=== PATIENT | male | born 1955 | race Caucasian/White ===

== ENCOUNTER 2016-10-15 18:04 | Inpatient (IN) | payer OTHER ==
[~2016-10-15] VITALS: Ht 190.5 cm; Wt 105.0 kg
[2016-10-19] MEDS ORDERED: EFFEXOR DPS75 MG PO (18:28)
[2016-10-19] MEDS ORDERED: CELEXA40 MG PO (18:28)
[2016-10-19] MEDS ORDERED: THERA1 EACH PO (18:28)
[2016-10-19] MEDS ORDERED: MAGNESIUM250 M1 PO (18:29)
[2016-10-19] MEDS ORDERED: TURMERIC500 MG PO (18:29)
[2016-10-19] MEDS ORDERED: VITAMIN D31000 UNIT PO (18:30)
[2016-10-19] MEDS ORDERED: VITAMIN B-12500 MCG PO (18:30)
[2016-10-19] MEDS ORDERED: FLONASE 0.05% D16 GM NS (18:30)
[2016-10-19] MEDS ORDERED: ZESTORETIC 20/21 TAB PO (18:31)
--- NOTE | 2016-10-21 13:56 | ER ---
ADMIT: 10/15/2016 RM/LOC: [address] [place] [address] MR#: [id number] [id number] [place], [place] [address] DUSTIN KAUR [address] [place] [address] Emergency Room Report SEX: M AGE: 61 : 1955 DATE: 10/15/2016 HISTORY OF PRESENT ILLNESS: The patient is a 61-year-old male, presents to the emergency room with 12 hours of abdominal pain. He says in the last hour, it has gotten worse. He describes it as a pressure pain. He feels bloated. He has had some nausea and vomiting. He is pretty concerned because he has had multiple surgeries in the past, abdominal surgeries. REVIEW OF SYSTEMS: Now is positive for anxiety. PAST MEDICAL HISTORY: He has had ischemic bowel, multiple bowel surgeries, shoulder surgery, liver lesion. MEDICATIONS: He takes: 1. Celexa. 2. Effexor. ALLERGIC: To aspirin and penicillin. PHYSICAL EXAMINATION: VITAL SIGNS: Blood pressure 184/118 with a heart rate of 61, respirations 20, temp is 97.7, O2 sats 98%. GENERAL: Moderately anxious, very pleasant and cooperative with the physical examination. NECK: Supple. RESPIRATIONS: No distress. CARDIOVASCULAR: Regular in rate and rhythm. ABDOMEN: Distended. Hernia palpated ventrally. There is generalized abdominal discomfort with right upper quadrant deep palpation discomfort and guarding. BACK: Normal inspection. SKIN: Good color and turgor. EXTREMITIES: Nontender. No edema. NEURO: Oriented x4. Mood and affect are appropriate. LABORATORY AND DIAGNOSTIC DATA: CBC within normal limits. Chemistry normal as well except for the lipase at 472. Lactic acid 1.4. UA hazy with amorphous ADMIT: 10/15/2016 RM/LOC: 501 [facility] MR#: [id number] [address] [address] UDSTIN KAUR [address] [place] [address] Emergency Room Report SEX: M AGE: 61 : [address] obstruction close to the anastomosis site, dilated loops of small bowel, ventral hernia and constipation. Dr. Kemp was contacted at [address] Martinez on this patient. CLINICAL IMPRESSION: 1. Constipation. 2. Bowel obstruction. 3. Ventral hernia. 4. Abdominal pain. Orders received. The patient has received IV fluids, 4 mg IV of Zofran, and Dilaudid 1 mg IV. The patient mentions that he had 6 abdominal surgeries altogether. The patient is awaiting room placement now. HAYES Muro / Angus Story MD / foreign JOB #: [id number] CC: Randy Martinez MD, Attending Physician Randy Martinez MD, Family Physician
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
--- NOTE | 2016-10-27 16:25 | CO ---
ADMIT: 10/15/2016 RM/LOC: 501 [facility] MR#: [id number] [address] [address] DUSTIN KAUR [address] [place] [address] Consultation SEX: M AGE: 61 : 1955 DATE OF CONSULTATION: 10/16/2016 ATTENDING PHYSICIAN: Randy Martinez CONSULTING PHYSICIAN: Xander Trimble MD REASON FOR CONSULTATION: Question of a small-bowel obstruction and abdominal pain. HISTORY OF PRESENT ILLNESS: This patient is a 61-year-old male with a significant and complicated surgical history. Evidently, at one point, he had a portal vein thrombosis, ended up with splenectomy, ended up with ischemic bowel and a surgery there. At some point, he has had a part of his liver removed for a lesion that he says was benign. He had a hernia repair by I believe Dr. Dior at some point or somewhere, but then ultimately, he had a recurrence of small bowel obstruction; and about 7 years ago, in 2009, he had a long and extended surgery in his abdomen. At that point, they removed the biologic I believe. Since then, for the most part he has been getting along okay. He does have a recurrence kind of a midline hernia, and it sounds like yesterday he started having abdominal pain, a little bit of nausea and vomiting, but is much better today. His abdomen is very soft. There is no incarceration into this hernia; soft throughout with minimal pain. Not really passed any gas yesterday, and he had a little loose stool, but he said, that is not unusual for him. No blood or anything else. PAST MEDICAL HISTORY: Significant for I believe six different abdominal surgeries as described above. He has had a shoulder surgery. MEDICATIONS: Include: 1. Effexor. 2. Citalopram. 3. Flonase. 4. Few different vitamins. ALLERGIES: 1. PENICILLIN. 2. ASPIRIN. 3. LATEX. 4. NSAIDS. SOCIAL HISTORY: Denies any significant tobacco, alcohol, or illicit drugs. FAMILY HISTORY: Otherwise, noncontributory. PHYSICAL EXAMINATION: GENERAL: Currently, when I see him, he is alert, he is oriented, he is in no significant distress. He has a headache. EYES: His sclerae are nonicteric. His extraocular muscles are intact. CHEST: Appears clear anteriorly. HEART: Regular rate and rhythm without significant murmurs. ADMIT: 10/15/2016 RM/LOC: 501 [facility] MR#: [id number] [address] [address] DUSTIN KAUR [address] [place] [address] Consultation SEX: M AGE: 61 : 1955 ABDOMEN: Soft. As described above, no real pain to palpation. Hernia which is easily palpated with nothing incarcerated. No other mass or organomegaly. EXTREMITIES: Without any significant clubbing, cyanosis, or edema. REVIEW OF SYSTEMS: His review of systems was done and as above in the HPI. Otherwise, completely negative. ASSESSMENT AND PLAN: Obviously with his history, he is somebody we would do everything we could conservatively to stay out of his abdomen, and thus, it was life saving and/or dire needs. If he starts back on it more, we would plan on doing an NG tube first. At this point though, he seems to be improved, we will try some increased activity, sips of water, Dulcolax suppositories if needed. I will follow along. Xander Trimble MD/ foreign JOB #: [id number] CC: Randy Martinez, Attending Physician Randy Martinez, Family Physician
--- NOTE | 2016-11-25 08:19 | DS ---
ADMIT: 10/15/2016 RM/LOC: 501 [facility] MR#: [id number] [id number] [place], [place] [address] DUSTIN KAUR [address] [place] [address] General Discharge Summary SEX: M AGE: 61 : 1955 ADMISSION DATE: 10/15/2016 DISCHARGE DATE: 10/18/2016 PRIMARY DIAGNOSES: 1. Partial small bowel obstruction. 2. Large ventral hernia. 3. Enlarged prostate. 4. Urine retention (secondary to enlarged prostate). 5. Elevated liver enzymes. 6. Hypertension. CONSULTATIONS DURING THIS HOSPITALIZATION: General Surgery (Dr. All Trimble). HISTORY OF PRESENT ILLNESS: The patient is a 61-year-old, white male, who has a history of multiple previous abdominal surgeries. He states that over the past week, he has not felt well in regard to his abdomen. He has had some generalized abdominal discomfort, which had been minimal earlier in the week, but progressively worsened over the course of the week. He began to have some worsening abdominal pain and became fairly severe on the evening of Nelson, 10/15/2016. Because of this, he came into the emergency room for evaluation. He has had numerous previous abdominal surgeries. CT scan of the abdomen done through the emergency room showed some fluid-filled loops of small bowel significant for possible obstruction. Given his abdominal pain and CT scan findings, he was kept for evaluation and treatment of a partial small bowel obstruction. LABORATORY AND X-RAY: Admission labs from the ER included a white count of 9.5, hemoglobin 14.7, and platelet count 203. Urinalysis was unremarkable. Admission sodium 141, potassium 4.1, BUN 16, creatinine 1.0, glucose 92, amylase 70, lipase 472, AST 30, ALT 39, and lactic acid 1.4. CT scan of the abdomen and pelvis done through the emergency room evaluation showed dilated loops of small bowel suspicious for partial obstruction. Also, noted was some constipation and an enlarged prostate. He also had a large ventral abdominal hernia with loops of bowel present. Additional pertinent labs and x-ray includedan abdominal x-ray on 10/18, which showed a negative bowel gas pattern. C-reactive protein prior to discharge on 10/18 was 0.83. Labs prior to discharge included a sodium of 141, potassium 3.7, BUN 9, creatinine 0.9, alkaline phosphatase 173, AST 191, ALT 322, amylase 34, lipase 149, and magnesium 2.1. White blood cell count 6.4, hemoglobin 13.8, and platelet count 188. HOSPITAL COURSE: The patient was admitted to the hospital on 10/15/2016, with partial small bowel obstruction. Because of his multiple previous abdominal surgeries, I did consult General Surgery to evaluate this patient. We kept him n.p.o. at the time of admission and gave generous IV fluids. An NG tube was ordered to be placed if his pain, nausea, or vomiting continued. We continued his regular home medications and provided morphine CLUB LICENSEE for pain control. He was noted to have some elevated blood pressure readings and ADMIT: 10/15/2016 RM/LOC: 501 [facility] MR#: [id number] [address] [address] DUSTIN KAUR [address] [place] [address] General Discharge Summary SEX: M AGE: 61 : 1955 therefore amlodipine was initiated at a dose of 5 mg daily. The morphine was not really working well for his pain and was therefore switched to a Dilaudid CLUB LICENSEE on 10/16/2016. Abdominal flat plates were ordered and followed daily. Resolution of the small-bowel obstruction was noted on x-ray as the patient improved. General Surgery did see this patient in consultation and did not feel that any surgical intervention was needed, and in fact felt that any surgical intervention would try to be avoided if at all possible because of all of his previous abdominal surgeries and likely adhesions and scarring. I did start the patient on lisinopril/HCT 20/25 mg daily for his elevated blood pressure. He had apparently been on this in the past, but stopped taking it at home. The patient continued to improve throughout the hospitalization. He was passing gas by 10/17/2016. A full liquid diet was ordered by Dr. Trimble on 10/17/2016. He continued to improve and did not have any further nausea or vomiting. He had been having bowel movements by 10/18/2016 as well as passing gas. His diet was advanced as tolerated and later in the day on 10/18/2016, he was doing well and was set up to be discharged to home. DISCHARGE INSTRUCTIONS: The patient was discharged to home on 10/18/2016. MEDICATIONS AT TIME OF DISCHARGE: Included: 1. Celexa 40 mg daily. 2. Effexor 75 mg daily. 3. Magnesium 400 mg daily. 4. Nephro-Shelli 1 tablet daily. 5. Therapeutic multivitamin once daily. 6. Vitamin D 1000 units daily. 7. Lisinopril/HCT 20/25 mg once daily. 8. Flonase nasal spray daily. He was to remain on a regular diet as tolerated. Follow up in [address] Martinez in the office. Randy Martinez MD/ foreign JOB #: [id number] CC: Randy Martinez MD, Attending Physician Randy Martinez MD, Family Physician
== END 2016-10-18 17:51 | disposition home or self-care (01) | DRG 389 ==
LOC: ER 18:04 → 5MS 20:25
PROVIDERS: ADMIT Family Medicine
DX: K56.60 Unspecified intestinal obstruction (principal); K76.6 Portal hypertension; K59.00 Constipation, unspecified; K43.9 Ventral hernia without obstruction or gangrene; J30.9 Allergic rhinitis, unspecified; F41.8 Other specified anxiety disorders; I10 Essential (primary) hypertension; N40.0 Benign prostatic hyperplasia without lower urinary tract symptoms; R33.9 Retention of urine, unspecified; R79.89 Other specified abnormal findings of blood chemistry; Z90.81 Acquired absence of spleen